=== PATIENT | female | born 1960 | race Caucasian/White ===

== ENCOUNTER 2020-09-07 16:23 | Emergency (ER) | payer OTHER, SELFPAY ==
--- NOTE | ~2020-09-07 | XR_ITS ---
EXAMINATION: XR shoulder RT min 2V EXAM DATE: 09/07/2020 17:43 INDICATION: rt shoulder pain from lifting boxes today. TECHNIQUE: Frontal and lateral projections of the right shoulder. Comparison is made to prior examin ation from 01/22/2018. FINDINGS: There is mild right acromioclavicular joint primary osteoarthritis. There are no acute fra ctures or dislocations identified. There is no subcutaneous gas. The soft tissue is unremarkable. There are no radiopaque foreign bodies. IMPRESSION: No acute osseous findings. Reviewed, dictated and finalized at location A. IMPRESSION: No acute osseous findings.
[2020-09-07 16:54] VITALS: BP 123/85; PULSE 71; RESP 16; TEMP 36.6; O2SAT 97
--- NOTE | 2020-09-07 16:54 | ED.URI ---
HPI - URI/Sore Throat General Chief Complaint: Extremity Injury, Upper Stated Complaint: chest pain History of Present Illness HPI Narrative: This is a 60 year old female that comes in complains of right shoulder pain that goes to her chest into her back states that she had been lifting boxes that caused her to have a whole bunch of pain hurts when she is required to lift her arm patient also states that it hurts to rotate her shoulder started a couple days ago Related Data Home Medications Medication Instructions Recorded Confirmed Creon 09/07/20 [email or web address] 09/07/20 Allergies Allergy/AdvReac Type Severity Reaction Status Date / Time aspirin Allergy Mild Hives Verified 09/07/20 17:06 ibuprofen Allergy Mild Hives Verified 09/07/20 17:06 Review of Systems Review of Systems: Narrative: CONSTITUTIONAL: Denies fever, chills, or sweats. EYES: Denies visual changes, redness, or discharge. ENT: Denies rhinorrhea, congestion, sore throat, or otalgia. CARDIOVASCULAR:Denies chest pain, palpitations, or edema. RESPIRATORY: Denies cough or dyspnea. GASTROINTESTINAL: Denies abdominal pain, nausea, vomiting, or diarrhea. GENITOURINARY: Denies dysuria or hematuria. SKIN:[Denies rash or itching. MUSCULOSKELETAL:Denies back pain, right shoulder joint pain, or myalgia. NEUROLOGIC: Denies headache, numbness, or weakness. PSYCHIATRIC:Denies anxiety or depression PMFSH Social History Social History Gender identity (if verbalized by the patient): Female Comments At time as signature, I have reviewed and agree with nursing past medical, social, surgical and family history. Please see nursing chart for further information. There is no relevant family history pertinent to the presenting complaint. Exam Narrative: Exam Narrative: GENERAL:Well-appearing, well-nourished, and in no acute distress. HEAD:Normocephalic, atraumatic. EYES: PERRLA and EOMI. ENT: Nares clear, no rhinorrhea or epistaxis. Mucous membranes moist. NECK: Supple. CHEST: Clear to auscultation. No respiratory distress. HEART: Regular rate and rhythm. No murmur heard. Normal peripheral pulses. ABDOMEN: Soft, nontender, nondistended, normal active bowel sounds. EXTREMITIES: Decreased right shoulder range of motion due to pain. No edema. Painful to palpitation painful to lifting when asked to move patient states her shoulder increased pain. Patient informs me she is unable to take ibuprofen because she gets a rash SKIN: Warm, dry, no rash. NEURO: No focal deficits. Alert and oriented x3. 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 Right shoulder shows osteoarthritis Patient lives percept impacted on her shoulder Vital Signs Vital signs: Vital Signs Temperature 97.9 F 09/07/20 16:54 Pulse Rate 71 09/07/20 16:54 Respiratory Rate 16 09/07/20 16:54 Blood Pressure 123/85 09/07/20 16:54 Pulse Oximetry 97 09/07/20 16:54 Temperature 97.9 F 09/07/20 16:54 Pulse Rate 71 09/07/20 16:54 Respiratory Rate 16 09/07/20 16:54 Blood Pressure 123/85 09/07/20 16:54 Pulse Oximetry 97 09/07/20 16:54 Discharge Plan Discharge Clinical Impression: Osteoarthritis involving joint of right upper arm Acute shoulder pain Qualifiers: Laterality: right Qualified Code(s): M25.511 - Pain in right shoulder Patient Disposition: Home, Self-Care Condition: Stable Instructions: Antibiotic Form, Osteoarthritis (ED), Swollen Joint (ED), Shoulder Pain (ED) Additional Instructions: Avoid weight bearing until the pain subsides. Ice to the area 20-30 minutes 4-6 times a day Elevate above heart Tylenol for lesser pain Ibuprofen regularly for the next 2-3 days for the inflammation Follow up with your primary care provider if the condition is not improving within 1 week or sooner if the condition worsens with numbness, tingling, decrease sensation with weakness to seek ER. she is on her right shoulder she says helps Prescriptions: New cycl
== END 2020-09-07 18:28 | disposition home or self-care (01) ==
PROVIDERS: Emergency Provider Nurse Practitioner Family
DX: M19.011 Primary osteoarthritis, right shoulder (principal); M25.511 Pain in right shoulder
CPT/HCPCS: 73030; 99213; G0463

== ENCOUNTER 2020-12-11 11:12 | Emergency (ER) | payer OTHER, SELFPAY ==
[2020-12-11 11:21] VITALS: BP 157/98; PULSE 71; RESP 16; TEMP 36.6; O2SAT 98
--- NOTE | 2020-12-11 11:30 | ED.GENADULT ---
HPI - General Adult General Chief complaint: Skin/Abscess/Foreign Body Stated complaint: lump on head Time Seen by Provider: 12/11/20 11:30 Source: patient and RN notes reviewed Mode of arrival: ambulatory Limitations: no limitations History of Present Illness HPI narrative: 60-year-old female presents with concern for pain area to her forehead. Reports sometime in the last week she was pulling a box off a shelf when the box hit her on the head. Reports the box hit a lump on her forehead that has been there for a long time, causing it to be painful. Reports it had never been painful before. She reports pain radiates down toward her eye into the scalp. She reports the area has been swollen and is no longer swollen. Reports she is using ice and warm water. Reports taking Tylenol with no relief. She denies any loss of consciousness, vomiting, weakness in any extremity. Reports intermittent blurry vision in the right eye MD complaint: Head injury Related Data Home Medications Medication Instructions Recorded Confirmed Creon 09/07/20 Allergies Allergy/AdvReac Type Severity Reaction Status Date / Time aspirin Allergy Mild Hives Verified 09/07/20 17:06 ibuprofen Allergy Mild Hives Verified 09/07/20 17:06 Review of Systems Review of Systems: CONSTITUTIONAL: Denies malaise, chills, sweats, or fever. EYES: Reports right sided intermittent blurry vision CARDIOVASCULAR: Denies chest pain, palpitations, or edema. RESPIRATORY: Denies cough or dyspnea. GASTROINTESTINAL: Denies vomiting SKIN: Denies lacerations, abrasions. Reports daily right scalp tenderness at the hairline MUSCULOSKELETAL: Denies myalgia. NEUROLOGIC: Denies numbness, weakness, or headache. All systems reviewed & are unremarkable except as noted in HPI and below PMFSH Social History Social History Gender identity (if verbalized by the patient): Female Comments At time of signature, agree with nursing past medical, surgical, social and family history. There is no relevant family history pertinent to the presenting complaint Exam Narrative: GENERAL: Well-appearing, well-nourished, and in no acute distress. HEAD: Normocephalic, atraumatic. EYES: PERRLA, sclera clear, and EOMI. No nystagmus. ENT: Nares clear. Mucous membranes moist. TM pearly sylvester with sharp light reflex bilaterally; no tragal tenderness. Oropharynx without erythema or lesions. Tonsils not enlarged and without exudate. NECK: Supple. CHEST: No respiratory distress. Speaks in full sentences. HEART: Regular rate and rhythm. EXTREMITIES: Grossly normal range of motion SKIN: Warm, dry, no visible rash. No lacerations, abrasions, redness, ecchymosis noted, no warmth or edema noted NEURO: Alert and oriented x3. No focal deficits. Cranial nerves II through XII grossly intact PSYCH: Normal mood and affect Course Course Emergency Course: Patient is aware of diagnosis, understands and agrees to treatment plan. Anticipatory guidance given. Patient agrees to follow-up as directed and is aware of reasons to seek care at the emergency department. Portions of this record may have been created with voice recognition software Vital Signs Vital signs: Vital Signs Temperature 97.9 F 12/11/20 11:21 Pulse Rate 71 12/11/20 11:21 Respiratory Rate 16 12/11/20 11:21 Blood Pressure 157/98 H 12/11/20 11:21 Pulse Oximetry 98 12/11/20 11:21 Temperature 97.9 F 12/11/20 11:21 Pulse Rate 71 12/11/20 11:21 Respiratory Rate 16 12/11/20 11:21 Blood Pressure 157/98 H 12/11/20 11:21 Pulse Oximetry 98 12/11/20 11:21 Reviewed. Patient has been instructed to follow up with her primary care provider within the next week regarding her elevated blood pressure today. Medical Decision Making MDM Narrative Medical decision making narrative: Exam findings show no acute concerns or changes; patient is non-toxic appearing and is in no distress. Patient is appropriate for outpatient treatme
== END 2020-12-11 11:47 | disposition home or self-care (01) ==
PROVIDERS: Emergency Provider Nurse Practitioner
DX: S00.03XA Contusion of scalp, initial encounter (principal); W20.8XXA Other cause of strike by thrown, projected or falling object, initial encounter
CPT/HCPCS: 99213; G0463

== ENCOUNTER 2020-12-12 15:59 | Emergency (ER) | payer OTHER, SELFPAY ==
--- NOTE | ~2020-12-12 | XR_ITS ---
XR chest 1V portable INDICATION: Chest pain. Hypertension. Asthma. TECHNIQUE: 2 view chest. FINDINGS: 07/18/2017 There is mild bilateral interstitial prominence and peribronchial cuffing. There is no focal consoli dation, pleural effusion, or pneumothorax. The cardiomediastinal silhouette is normal. IMPRESSION: 1. Findings most consistent with bronchiolitis versus an atypical or viral pneumonia. Reviewed, dictated and finalized at location A. IMPRESSION: 1. Findings most consistent with bronchiolitis versus an atypical or viral pne [facility].
--- NOTE | ~2020-12-12 | CT_ITS ---
EXAMINATION: CT brain wo con DATE: 12/12/2020 16:28 INDICATION: Headache. Recent blunt trauma. Blurry vision. TECHNIQUE: Computed tomography (CT) of the head was performed without intravenous contrast. The dose- length product was 605.33 mGy-cm. Automated exposure control and iterative reconstruction technique w ere employed. COMPARISON: None FINDINGS: There is normal sylvester-white differentiation. No acute intracranial hemorrhage, infarction, m ass or mass effect. No ventriculomegaly or midline shift. Basilar cisterns are patent. Paranasal sinu ses and mastoids are pneumatized. No depressed skull fractures. There are scattered mild periventricu lar and subcortical white matter changes, most likely related to small vessel ischemic disease (micro angiopathy). IMPRESSION: 1. No acute intracranial abnormality. Reviewed, dictated and finalized at location A.
[2020-12-12 16:03] VITALS: BP 167/119; PULSE 80; RESP 20; O2SAT 96
--- NOTE | 2020-12-12 16:14 | ECG_ITS ---
Measurements Intervals [place] Rate: 71 P: 41 SC: 188 QRS: 22 QRSD: 102 T: 73 QT: 408 QTc: 445 Interpretive Statements SINUS RHYTHM LOW QRS VOLTAGE IN PRECORDIAL LEADS BASELINE ARTIFACT- I, II, III, AVR, AVL, AVF, V1-V2, V4 BORDERLINE ECG Electronically Signed On 12-12-2020 17:25:33 CDT by Jann Laurent D.O.
--- NOTE | 2020-12-12 16:30 | ED.HA ---
HPI - Headache General Chief Complaint: Headache Stated Complaint: head injury 2 days ago, headache Time Seen by Provider: 12/12/20 16:13 Source: patient Mode of arrival: ambulatory Limitations: no limitations History of Present Illness HPI Narrative: Patient is a 60-year-old female complaining of a headache, generalized, 7 out of 10, aching started 2 days ago after a box fell on her head. Patient also states she had some blurred vision earlier but now resolved. Patient went to an urgent care and found her blood pressure to be elevated along with a headache so she was advised to come to the emergency room. Patient also complained of chest pressure, midsternal, 4 out of 10, nonradiating. Patient states that she has a history of hypertension but has been off her medication for years since she doesn't have a pcp. Patient denies any speech disturbance, focal weakness or numbness or unsteady gait. Patient denies any neck pain, chest pain, shortness of breath, abdominal pain, nausea, vomiting, fever or chills. Related Data Home Medications Medication Instructions Recorded Confirmed Creon 09/07/20 Allergies Allergy/AdvReac Type Severity Reaction Status Date / Time aspirin Allergy Mild Hives Verified 09/07/20 17:06 ibuprofen Allergy Mild Hives Verified 09/07/20 17:06 Review of Systems Review of Systems: All systems reviewed & are unremarkable except as noted in HPI and below Constitutional: Constitutional: Denies body ache(s), Denies chills, Denies excessive sweating, Denies fatigue, Denies fever(s), Denies headache(s), Denies lethargy, Denies malaise, Denies weakness and Denies weight loss Eyes: Eyes: Denies blurry vision, Denies change in vision and Denies loss of vision ENT: Denies dizziness, Denies ear discharge, Denies headache(s), Denies lip swelling, Denies epistaxis, Denies nasal congestion, Denies neck pain, Denies throat swelling and Denies tongue swelling Cardiovascular: Cardiovascular: Denies chest pain, Denies chest pain at rest, Denies chest pain with activity, Denies diaphoresis, Denies rapid heart rate, Denies edema, Denies irregular heart rhythm, Denies lightheadedness, Denies palpitations, Denies dyspnea and Denies dyspnea on exertion Respiratory: Respiratory: Denies chest congestion, Denies cough, Denies hemoptysis, Denies dyspnea and Denies dyspnea on exertion Gastrointestinal: Gastrointestinal: Denies abdominal pain, Denies melena, Denies hematochezia, Denies diarrhea, Denies nausea, Denies vomiting and Denies hematemesis Musculoskeletal: Musculoskeletal: Denies abnormal gait, Denies deformity, Denies joint swelling, Denies limited range of motion, Denies neck pain and Denies numbness Neurologic: Denies Abnormal speech present, Denies abnormal gait, Denies confusion, Denies dizziness, Denies focal weakness, Denies loss of vision, Denies numbness, Denies Other visual disturbances, Denies Sensory deficit (Neuro) and Denies weakness Psychiatric: Psychiatric: Denies confusion, Denies depression, Denies auditory hallucinations, Denies homicidal ideation and Denies suicidal ideation Endocrine: Endocrine: Denies cold intolerance, Denies excessive sweating, Denies fatigue, Denies heat intolerance and Denies palpitations Hematologic/Lymphatic: Hematologic/Lymphatic: Denies easy bleeding and Denies easy bruising Allergic/Immunologic: Allergic/Immunologic: Denies lip swelling, Denies throat swelling and Denies tongue swelling PMFSH Social History Social History Gender identity (if verbalized by the patient): Female Comments Past medical history: Exam Const: General: cooperative, healthy appearing, comfortable, no acute distress, well developed, alert and awake; No confusion Orientation/consciousness: oriented to person, oriented to place, oriented to time, patient oriented x3 and No confusion Limitations: no limitations HENMT: Head: normal to inspection, normocephalic and atraumatic Ears: hearing grossly
[2020-12-12 16:41] LABS: Basophils Percent Auto 0.2 % (0.2-1.2); Eosinophils Percent Auto 0.2 % (0-4.4); Hematocrit 48.6 % (37.0-47.0); Hemoglobin 16.4 g/dL (12.0-15.0); Immature Granulocyte Absolute 0.15 K/mm3 (0.00-0.031); Immature Granulocyte Percent A 1.7 % (0-0.5); Lymphocytes Absolute Auto 1.18 K/mm3 (0.9-3.2); Lymphocytes Percent Auto 13.5 % (18.3-44.2); Mean Corpuscular HGB Conc 33.7 g/dl (32-36); Mean Corpuscular Hemoglobin 30.8 pg (26-34); Mean Corpuscular Volume 91.2 fl (80-100); Mean Platelet Volume 10.4 fl (7.4-10.4); Monocytes Absolute Auto 0.4 K/mm3 (0.1-0.6); Neutrophils Percent Auto 80.4 % (45.5-73.1); Platelet Count Result 279 k/mm3 (150-375); Red Blood Count 5.33 M/mm3 (4.2-5.4); Red Cell Distribution Width 12.7 % (11.5-14.5); White Blood Count 8.7 K/mm3 (4.5-10.0)
[2020-12-12 16:51] LABS: Anion Gap 11 mmol/L (8-16); Blood Urea Nitrogen 11 mg/dL (7-17); Calcium 9.6 mg/dL (8.4-10.2); Carbon Dioxide 26 mmol/L (22-30); Chloride 103 mmol/L (98-107); Estimated CRCL calculation 78 ml/min; Estimated Glomerular Filt Rate > 60; Glucose 130 mg/dL (65-110); Potassium 4.6 mmol/L (3.4-5.0); Sodium 140 mmol/L (137-145)
[2020-12-12 17:09] VITALS: BP 156/98; PULSE 71; RESP 22; O2SAT 94
[2020-12-12 17:10] VITALS: BP 156/98; PULSE 69; RESP 28; O2SAT 95
[2020-12-12 17:28] LABS: Troponin I < 0.012 ng/mL (0.000-0.034)
--- NOTE | 2020-12-12 17:30 | PC.NURSE ---
called lab and spoke with Corrine to add troponin. Blood already in lab. En
[2020-12-12 18:15] VITALS: BP 158/93; PULSE 76; RESP 23; O2SAT 95
[2020-12-12] MEDS: MORPHINE SULFATE (*CRX) 2 MG/ML INJ IV PUSH (18:43)
[2020-12-12] MEDS: PROMETHAZINE HCL 25 MG/ML AMPUL 12.5 MG IV PUSH (18:44)
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
== END 2020-12-12 19:20 | disposition left against medical advice (07) ==
LOC: ANHED 18:47 → ANHIMU 19:22
PROVIDERS: Emergency Provider Emergency Medicine; PCP Emergency Medicine
DX: S09.90XA Unspecified injury of head, initial encounter (principal); R07.9 Chest pain, unspecified; I10 Essential (primary) hypertension; R94.31 Abnormal electrocardiogram [ECG] [EKG]; W20.8XXA Other cause of strike by thrown, projected or falling object, initial encounter
CPT/HCPCS: 36415; 70450; 71045; 80048; 84484; 85025; 93005; 96374; 96375; 99284; J2270; J2550

== ENCOUNTER 2020-12-20 10:17 | Outpatient (CLI) | payer OTHER, SELFPAY ==
--- NOTE | ~2020-12-20 | CT_ITS ---
EXAMINATION: CT lung screening DATE: 12/20/2020 11:02 INDICATION: Personal history of tobacco dependence, current smoker with 30 pack year history TECHNIQUE: Computed tomography (CT) of the chest was performed without intravenous contrast. The dose -length product (DLP) was 109.74 mGy-cm. Automated exposure control and iterative reconstruction tech [employer] were employed. COMPARISON: None FINDINGS: There is moderate emphysema. No suspicious pulmonary nodules are identified. The lungs are free of acute opacities. There is no pleural effusion or pneumothorax. No pathologically enlarged tho racic lymph nodes are identified. The heart size is normal. There is mild thoracic spondylosis. IMPRESSION: 1. Lung-RADS category 1: Negative. Continue annual screening with noncontrast low-dose chest CT in 12 months. Reviewed, dictated and finalized at location B. IMPRESSION: 1. Lung-RADS category 1: Negative. Continue annual screening with noncontrast l ow-dose chest CT in 12 months.
== END 2020-12-20 10:18 | disposition home or self-care (01) ==
LOC: ANHIMG 10:24
PROVIDERS: PCP Emergency Medicine; Visit Provider Emergency Medicine
DX: Z12.2 Encounter for screening for malignant neoplasm of respiratory organs (principal); Z87.891 Personal history of nicotine dependence
CPT/HCPCS: 71271

== ENCOUNTER 2021-01-03 15:53 | Emergency (ER) | payer OTHER, SELFPAY | END 2021-01-04 02:22 | disposition left against medical advice (07) | LOC: ANHED 16:04 | DX: Z53.21 Procedure and treatment not carried out due to patient leaving prior to being seen by health care provider (principal) | CPT/HCPCS: 99199 ==

== ENCOUNTER 2021-01-05 15:21 | Outpatient (CLI) | payer OTHER, SELFPAY ==
--- NOTE | ~2021-01-05 | XR_ITS ---
EXAMINATION: XR chest 2V EXAM DATE: 01/05/2021 15:55 INDICATION: Bronchitis, shortness of breath, left-sided chest pain. TECHNIQUE: Frontal and lateral projections of the chest obtained and reviewed. Comparison is made to prior examination from 11/22/2020. FINDINGS: There is aortic arteriosclerosis. The lungs are clear. There are no pleural effusions. T he cardiomediastinal silhouette is within normal limits. There is no pneumothorax suspected. The alexandra leann and soft tissues are unremarkable. IMPRESSION: No acute cardiopulmonary findings. Reviewed, dictated and finalized at location B. ARCHITECT
--- NOTE | ~2021-01-05 | MM_ITS ---
EXAMINATION: MM screening jane BI w [facility] HISTORY: Screening mammogram TECHNIQUE: Craniocaudal and mediolateral oblique 3-D tomosynthesis images were obtained and synthetic 2-D images were generated. CAD analysis was submitted and interpreted. COMPARISON: 03/03/2014 BREAST PARENCHYMAL COMPOSITION: There are scattered areas of fibroglandular density. FINDINGS: There is no evidence of suspicious mass, calcification, or architectural distortion to sugg est malignancy in either breast. There has been no suspicious interval change. IMPRESSION: 1. No mammographic evidence of malignancy. 2. Recommend routine screening mammography in one year. BI-RADS Category 1: Negative Reviewed, dictated and finalized at location A. BASE ADMIN
== END 2021-01-05 15:22 | disposition home or self-care (01) ==
LOC: ANHIMG 15:24
PROVIDERS: Visit Provider Emergency Medicine
DX: Z12.31 Encounter for screening mammogram for malignant neoplasm of breast (principal); I70.0 Atherosclerosis of aorta; R93.89 Abnormal findings on diagnostic imaging of other specified body structures
CPT/HCPCS: 71046; 77063; 77067

== ENCOUNTER 2021-01-17 14:45 | Outpatient (CLI) | payer OTHER, SELFPAY ==
--- NOTE | ~2021-01-17 | CT_ITS ---
EXAMINATION: CT abdomen pelvis w con EXAM DATE: 01/17/2021 15:16 INDICATION: Abdominal bloating. Left lower quadrant pain. TECHNIQUE: Spiral CT of the abdomen and pelvis was performed following intravenous injection of 100 m L Omnipaque 350. Axial, coronal and sagittal images of the abdomen and pelvis were reviewed. The do se-length product (DLP) for this examination was 784.10 mGy-cm. The exposure was tailored according to patient size (auto mA exposure control), and iterative reconstruction (ASIR) was used as additiona l dose reduction technique. Comparison is made to prior examination from 07/28/2010. FINDINGS: There is hepatic steatosis without suspicious focal lesion identified. Spleen, adrenal glan ds, pancreas are unremarkable. There are cholecystectomy clips. Portal and splenic veins are patent . Kidneys enhance symmetrically. There is no hydronephrosis. The uterus is anteverted and morphol ogically normal. The bladder is unremarkable. There is no retroperitoneal or pelvic lymphadenopath y. Scattered aortic arterial sclerosis. The appendix is not positively visualized. There is mild sigmoid colonic diverticulosis. There is no adjacent inflammatory change to suggest diverticulitis. There is no pericecal inflammatory change to suggest appendicitis. The stomach and small bowel are unremarkable. There is expected amount of c olonic stool. No free intraperitoneal gas. The heart is normal in size. There are no pericardial or pleural effusions. The lung bases are unremarkable. There are no osteoblastic or osteolytic les ions identified. IMPRESSION: 1. No acute intra-abdominal findings. 2. Hepatic steatosis. 3. Mild colonic diverticulosis. Reviewed, dictated and finalized at location A. E FITTER
[2021-01-17 15:08] LABS: Estimated Glomerular Filt Rate > 60
== END 2021-01-17 14:46 | disposition home or self-care (01) ==
PROVIDERS: Visit Provider Internal Medicine Gastroenterology
DX: R10.9 Unspecified abdominal pain (principal); R14.3 Flatulence; R11.0 Nausea; K76.0 Fatty (change of) liver, not elsewhere classified; K57.30 Diverticulosis of large intestine without perforation or abscess without bleeding
CPT/HCPCS: 74177; Q9967

== ENCOUNTER 2021-01-31 12:40 | Outpatient (CLI) | payer OTHER, SELFPAY ==
--- NOTE | ~2021-01-31 | XR_ITS ---
XR lumbar spine 2-3V 01/31/2021 13:41 Indication: Low back pain Procedure: 3 views lumbar spine Comparison: 07/13/2013 Findings: There is grade 1 degenerative spondylolisthesis at L4-5. Vertebral body heights are maintai nancy. No fracture, subluxation or dislocation. There are mild facet degenerative changes of the lower lumbar spine. Mild levocurvature. Small marginal osteophytes at multiple levels. There are cholecyste ctomy clips. There is atherosclerosis of the aorta. Impression: 1: Mild lumbar spondylosis. Reviewed, dictated and finalized at location A. MOBILE PARTS ASSEMBLER Impression: 1: Mild lumbar spondylosis.
--- NOTE | ~2021-01-31 | XR_ITS ---
EXAMINATION: XR hip LT min 2V DATE: 01/31/2021 13:41 INDICATION: Low back pain. TECHNIQUE: 2 views of left hip were obtained. COMPARISON: Pelvis radiograph 02/02/2014 FINDINGS: Bone alignment is normal. No fracture. There is moderate left hip osteoarthritis. IMPRESSION: 1. Moderate left hip osteoarthritis. Reviewed, dictated and finalized at location A. OGRAPHIC LABORATORY TECHNICIAN
--- NOTE | ~2021-01-31 | DEXA_ITS ---
Bone Density Report Name: MARIBELL HUERTA Age: 60 Sex: Female Ethnicity: White Date of : 1960 Indication: osteopenia; height loss; prior fracture; asthma or emphysema; postmenopausal Referring Provider: Margaret, Shima Edge Study: Bone densitometry was performed. Exam Date: January 31, 2021 Accession number: [id number] Bone Density: Region BMD T-score Z-score Classification AP Spine (L2, L3, L4) 0.933 -1.3 0.2 Osteopenia Femoral Neck (Left) 0.795 -0.5 0.9 Normal Total Hip (Left) 1.037 0.8 1.8 Normal Total Hip Bilateral Avg 1.033 0.8 1.8 Normal Femoral Neck (Right) 0.849 0.0 1.3 Normal Total Hip (Right) 1.029 0.7 1.7 Normal World Health Organization criteria for BMD impression classify patients as: Normal (T-score at or above -1.0), Osteopenia (T-score between -1.0 and -2.5), or Osteoporosis (T-score at or below -2.5). 10-year Fracture Risk(1): Major Osteoporotic Fracture 11% Hip Fracture 0.7% Reported Risk Factors: [place] (), Neck BMD=0.795, BMI=32.0, previous fracture, smoking (1) FRAX(R) Version 3.08. Fracture probability calculated for an untreated patient. Fracture probability may be lower if the patient has received treatment. Previous Exams: Region Exam Age BMD T-score BMD Change BMD Change Date g/cm2 vs Baseline vs Previous AP Spine(L2, L3, L4) 01/31/2021 60 0.933 -1.3 0.048(5.4%)* 0.048(5.4%)* 03/03/2014 53 0.886 -1.8 Total Hip(Left) 01/31/2021 60 1.037 0.8 0.047(4.7%)* 0.047(4.7%)* 03/03/2014 53 0.990 0.4 Total Hip(Right) 01/31/2021 60 1.029 0.7 0.028(2.8%)* 0.028(2.8%)* 03/03/2014 53 1.000 0.5 *Denotes significance at 95% confidence level, LSC for AP Spine = 0.022 g/cm2, LSC for Total Hip = 0.027 g/cm2 Clinical Information Provided by Patient: Has had a low trauma fracture Smokes Has the following medical conditions: Asthma or Emphysema Patient maximum height was 63 Menopause Age: 53 Drinks caffeinated beverages Onset of menses at age 14 Number of children 3 Impression: The patient has low bone mass, based on the Total Spine T-score. The patient has an estimated ten-year risk of hip fracture of 0.7% and an estimated ten-year risk of major fracture of 11%, based on the WHO FRAX algorithm. The patient has risk factors, including: smoking, previous fracture. No significant bone loss was observed. Discussion: BONE DENSITY IS LOW AT ONE OR MORE SKELETAL SI
== END 2021-01-31 12:41 | disposition home or self-care (01) ==
LOC: ANHIMG 12:45
PROVIDERS: PCP Emergency Medicine; Visit Provider Nurse Practitioner Obstetrics & Gynecology
DX: Z78.0 Asymptomatic menopausal state (principal); M54.59 Other low back pain; M47.816 Spondylosis without myelopathy or radiculopathy, lumbar region; M16.12 Unilateral primary osteoarthritis, left hip
CPT/HCPCS: 72100; 73502; 77080

== ENCOUNTER 2021-02-15 10:13 | Outpatient (CLI) | payer OTHER, SELFPAY ==
--- NOTE | ~2021-02-15 | US_ITS ---
EXAMINATION: US aorta DATE: 02/15/2021 11:08 INDICATION: Atherosclerosis of the aorta TECHNIQUE: Grayscale, color Doppler, and pulsed Doppler images of the aorta and common iliac arteries were obtained. COMPARISON: CT abdomen and pelvis dated 01/17/2021 FINDINGS: The proximal aorta measures 2.3 cm in AP diameter. The mid aorta measures 1.8 cm AP diameter. The dis lizbeth aorta measures 1.6 cm AP diameter. The right common iliac artery measures 10 mm. The left common iliac artery measures 9 mm. IMPRESSION: 1. Normal caliber abdominal aorta Reviewed, dictated and finalized at location A. REMODELER
== END 2021-02-15 10:14 | disposition home or self-care (01) ==
LOC: ANHIMG 10:14
PROVIDERS: PCP Emergency Medicine; Visit Provider Emergency Medicine
DX: I70.0 Atherosclerosis of aorta (principal)
CPT/HCPCS: 76775

== ENCOUNTER 2021-09-01 07:31 | Outpatient (CLI) | payer OTHER, SELFPAY ==
--- NOTE | ~2021-09-01 | XR_ITS ---
EXAMINATION: XR barium swallow DATE: 09/01/2021 08:15 INDICATION: Dysphagia. TECHNIQUE: The patient drank thick barium, gas-producing crystals, and thin barium. Fluoroscopy of th e hypopharynx and esophagus was performed. Fluoroscopy exposure time was 0.3 minutes. The total numbe r of images was 407. The dose-area product was 2.204 Gy-cm^2. COMPARISON: None. FINDINGS: There is no mass or stricture of the esophagus. Esophageal motility is normal. There is no hiatal hernia. There was no gastroesophageal reflux with provocative maneuvers. IMPRESSION: 1. Normal esophagram. Reviewed, dictated and finalized at location A. IMPRESSION: 1. Normal esophagram.
== END 2021-09-01 07:32 | disposition home or self-care (01) ==
PROVIDERS: PCP Physician Assistant; Visit Provider Internal Medicine Gastroenterology
DX: R13.10 Dysphagia, unspecified (principal)
CPT/HCPCS: 74220

== ENCOUNTER 2022-03-06 15:13 | Outpatient (CLI) | payer OTHER, SELFPAY ==
--- NOTE | ~2022-03-06 | MM_ITS ---
EXAMINATION: MM screening jane BI w [facility] HISTORY: Screening mammogram TECHNIQUE: Craniocaudal and mediolateral oblique 3-D tomosynthesis images were obtained and synthetic 2-D images were generated. CAD analysis was submitted and interpreted. COMPARISON: 01/05/2021, 03/03/2014 BREAST PARENCHYMAL COMPOSITION: There are scattered areas of fibroglandular density. FINDINGS: No suspicious mass, calcification, or architectural distortion are identified in either axel ast to suggest malignancy. There has been no suspicious interval change. IMPRESSION: 1. No mammographic evidence of malignancy. 2. Recommend routine screening mammography in one year. BI-RADS Category 1: Negative Reviewed, dictated and finalized at location A. ECTIONS ATTORNEY
== END 2022-03-06 15:14 | disposition home or self-care (01) ==
PROVIDERS: Visit Provider Nurse Practitioner Obstetrics & Gynecology
DX: Z12.31 Encounter for screening mammogram for malignant neoplasm of breast (principal)
CPT/HCPCS: 77063; 77067

== ENCOUNTER 2022-03-12 15:27 | Emergency (ER) | payer OTHER, SELFPAY ==
--- NOTE | ~2022-03-12 | XR_ITS ---
EXAMINATION: XR cervical spine 4-5V DATE: 03/12/2022 16:12 INDICATION: Left posterior neck pain. TECHNIQUE: 4 views of cervical spine were obtained. COMPARISON: Cervical spine radiographs 02/02/2014 FINDINGS: There is 8 degrees levocurvature of cervicothoracic spine. Vertebral body heights are alex l. There is mildly decreased disc height at C4-C5, moderately decreased disc height at C5-C6, and mil dly decreased disc height at C6-C7. There is multilevel uncovertebral joint osteoarthritis, severe bi laterally at C5-C6. There is multilevel mild facet joint osteoarthritis. There is mild central canal stenosis at C5-C6 and C6-C7. No prevertebral soft tissue swelling. IMPRESSION: 1. Moderate cervical spondylosis, stable from 02/02/2014. Reviewed, dictated and finalized at location A. LATORY PAINTER
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
[2022-03-12 15:39] VITALS: BP 148/89; PULSE 80; RESP 16; TEMP 36.5; O2SAT 99
[2022-03-12 15:40] VITALS: BP 148/89; PULSE 80; RESP 16; TEMP 36.5; O2SAT 99
== END 2022-03-12 16:37 | disposition home or self-care (01) ==
PROVIDERS: Emergency Provider Nurse Practitioner; PCP Physician Assistant
DX: S16.1XXA Strain of muscle, fascia and tendon at neck level, initial encounter (principal); V89.2XXA Person injured in unspecified motor-vehicle accident, traffic, initial encounter; I10 Essential (primary) hypertension; M47.812 Spondylosis without myelopathy or radiculopathy, cervical region
CPT/HCPCS: 72050; 99213; G0463